=== PATIENT | male | born 1970 | race Caucasian/White ===

== ENCOUNTER → 2024-01-03 06:23 | Day surgery (SDC) | payer BC, SELFPAY ==
[2024-01-03 08:01] LABS: Glucose - Point of Care 139 mg/dl (70-99)
== END ==
LOC: GI 06:23
PROVIDERS: ATTENDING PHYSICIAN Specialist
DX: R10.11 Right upper quadrant pain (principal); K31.89 Other diseases of stomach and duodenum; K31.9 Disease of stomach and duodenum, unspecified
CPT/HCPCS: 43239; 88305; 82962; 88342

== ENCOUNTER 2024-11-30 13:32 | Emergency (ER) | payer BC, SELFPAY ==
[2024-11-30 13:37] VITALS: BP 178/104
--- NOTE | 2024-11-30 13:59 | ED.GENMED ---
History of Present Illness
General
Chief Complaint: Chest Pain
Time Seen by Provider: 11/30/24 13:59
History of Present Illness
History of Present Illness:
TIME OF INITIAL ENCOUNTER: 2:30 PM
HPI: Over the past couple of days, the patient has been having a sensation that he is 'heart does not feel right'. He describes it as a pounding sensation at times feeling that his heart has a forceful beat and then a pause and then a normal soft
beat. He denies any chest pressure. He has some vague lightheadedness as well. He states that he had blood work including thyroid testing 2 days ago without symptoms and testing was normal. He tells me that he was here in the past and received a
bag of IV fluid and then was improved. 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
EXAM:
GENERAL: Well appearing in no distress
HEENT: Moist oral mucosa
CARDIOVASCULAR: No murmurs, normal heart rate, regular rhythm, No chest wall tenderness
PULMONARY: No respiratory distress, breath sounds are clear and equal
ABDOMEN: Soft with no peritoneal signs, no tenderness
NEUROLOGIC: Excellent strength all extremities, no coordination deficits
PSYCHIATRIC: Appropriate mental status, normal insight and judgement
EXTREMITIES: Nontender, no edema, moves all extremities equally
SKIN: No rash, no lesions
NUMBER AND COMPLEXITY OF PROBLEMS ADDRESSED AT THE ENCOUNTER
� Chronic conditions affecting care: IDDM, hypothyroidism
� Acute Exacerbation and/or Progression of Chronic Illness: This is an acute problem
� Differential Diagnosis includes: Electrolyte abnormality, dehydration, medication side effects, viral syndrome
AMOUNT AND/OR COMPLEXITY OF DATA TO BE REVIEWED AND ANALYZED
� I performed an independent evaluation of and my interpretation is:
EKG: Sinus 93, left axis deviation, nonspecific ST abnormality, incomplete right bundle branch block similar to prior, no acute ST abnormality
CT:
X-rays:
Laboratory Studies: CBC unremarkable, slightly low sodium at 130, troponin less than 0.012
Other:
� Review of other/old records: I reviewed records, in July 2023 the patient had a sodium of 125 and today tells me that he felt better after he received fluids at that time
� Clinical information was obtained by an independent historian: None needed
� Prescriptions/Medications Considered but not given:
� Further testing considered but not performed:
RISK OF COMPLICATIONS AND/OR MORBIDITY OR MORTALITY OF PATIENT MANAGEMENT
� Social determinants of health affecting care: Lives at home
� Discussion with other providers:
� Escalation of care including admission/observation vs risk of discharge considered: The patient's sodium is just slightly low at 130 which may or may not have anything to with his symptoms. We did give him a liter of fluid and
he does feel improved. Unclear etiology of all of his symptoms.
ANY OTHER UPDATES:
Past History
Past History
ED Past Medical History: IDDM
ED Past Surgical History: None
Social History
Tobacco: Smoker
Alcohol: None
Drug: None
Phy Exam
Physical Exam
Physical Exam:
See HPI
Scores
Heart Score for Chest Pain Patients
STEMI patient?: Not applicable
Course
Orders/Labs/Results
Orders:
Orders
11/30/24 13:33
EKG with chest pain [ECG as needed] As Directed
ECG as needed for:: Chest Pain
11/30/24 13:45
Complete Blood Count/With Diff Urgent
Comprehensive Metabolic Panel Urgent
TSH Reflex To Free T4 Urgent
Comment: ADD ON
Troponin I Urgent
11/30/24 14:00
Add On- LAB Urgent
Tests Added?: tsh reflex fT4
11/30/24 14:18
Electrocardiogram (*1) Urgent
Reason for Study: Chest Pain
EKG- Treatment ONCE
11/30/24 14:39
0.9% Sodium Chloride 1000 ml [Nss] 1,000 ml IV BOLUS
Abnormal Lab Results
11/30/24
13:45
RBC 4.21 L 10^6/uL
(4.70-6.10)
MCV 97.1 H fL
(80.0-94.0)
MCH 34.0 H pg
(27.0-31.0)
MPV 11.6 H fL
(7.4-10.4)
Abs Immat Gran (auto) 0.1 H 10^3/uL
(0-0.05)
Absolute Neuts (auto) 7.7 H 10^3/uL
(1.4-6.5)
Absolute Lymphs (auto) 0.9 L 10^3/uL
(1.2-3.4)
Immature Gran % 0.7 H %
(0-0.5)
Neutrophils % 83.9 H %
(42.2-75.2)
Lymphocytes % 9.6 L %
(20.5-51.1)
Sodium 130 L mmol/L
(135-145)
11/30/24 13:45
11/30/24 13:45
Vital Signs
Initial and Last Documented VS:
Initial Vital Signs
Temp Pulse Resp BP Pulse Ox
36.7 C 88 18 178/104 100
11/30/24 13:37 11/30/24 13:37 11/30/24 13:37 11/30/24 13:37 11/30/24 13:37
Last Documented Vital Signs
Temp Pulse Resp BP Pulse Ox
36.7 C 88 18 178/104 100
11/30/24 13:37 11/30/24 13:37 11/30/24 13:37 11/30/24 13:37 11/30/24 13:37
*Critical Care Note
Total Time (30-74mins, 75-104mins- exclusive of procedures): Not Applicable
ED Attending Note
-
Portions of this chart may have been created with voice recognition software.� Occasional wrong word or��sound alike� substitutions may have occurred due to the inherent limitations of voice recognition software.
Discharge Plan
Departure
Prescriptions:
No Action
Insulin Pump [Patient's Own Insulin Pump:] 1 UNITS Pump.Resvr
0 ea SC ACHS
cyclobenzaprine 10 MG tablet
10 mg PO BIDPRN PRN (Reason: spasm) Qty: 14 0RF
Referrals:
Maik Quintana MD [Family Provider] -
Interventions
Interventions:
*Risk Screen - Suicide Last Done: 11/30/24 13:37
*General Assessment Last Done: 11/30/24 13:37
*Neglect/Abuse Screening Last Done: 11/30/24 13:37
*ED COVID-19 Vaccine History Last Done: 11/30/24 13:37
ED- Cardiac Assessment Last Done: 11/30/24 14:47
Discharge Date and Time
Print Language: SAMI
[2024-11-30 14:14] VITALS: BMI 23.8
[2024-11-30 14:14] LABS: % Basophils 0.3 % (0-2); % Eosinophils 0.5 % (0-6); % Immature Granulocytes 0.7 % (0-0.5); % Lymphocytes 9.6 % (20.5-51.1); % Neutrophils 83.9 % (42.2-75.2); Absolute Eosinophils 0.1 10^3/uL (0-0.7); Absolute Immature Granulocytes 0.1 10^3/uL (0-0.05); Absolute Lymphocytes 0.9 10^3/uL (1.2-3.4); Absolute Monocytes 0.5 10^3/uL (0.1-0.6); Absolute Neutrophils 7.7 10^3/uL (1.4-6.5); Hematocrit 40.9 % (39.0-52.0); Hemoglobin 14.3 g/dL (13.0-18.0); Mean Corpuscular Volume 97.1 fL (80.0-94.0); Mean Platelet Volume 11.6 fL (7.4-10.4); Nucleated Red Blood Cells % 0 % (-); Platelet Count 184 10^3/uL (130-400); Red Blood Cell Count 4.21 10^6/uL (4.70-6.10); Red Cell Dist. Width 12.4 % (11.5-14.5); White Blood Cell Count 9.1 10^3/uL (4.8-10.8)
[2024-11-30 14:28] LABS: ALT (SGPT) 20 U/L (0-50); AST (SGOT) 26 U/L (17-59); Albumin 4.2 g/dl (3.5-5.0); Alkaline Phosphatase 73 U/L (38-126); Blood Urea Nitrogen 15 mg/dl (9-20); Calcium 9.7 mg/dl (8.4-10.2); Carbon Dioxide 26 mmol/L (22-30); Chloride 98 mmol/L (98-107); Estimated Creatinine Clearance 116 ml/min; Glucose 86 mg/dl (70-99); Potassium 4.6 mmol/L (3.5-5.1); Sodium 130 mmol/L (135-145); Total Bilirubin 0.7 mg/dl (0.2-1.3); Total Protein 7.1 g/dl (6.3-8.2); eGFR > 60.00
[2024-11-30 14:40] LABS: Troponin I < 0.012 ng/ml
[2024-11-30] MEDS: NSS 1000 IV ×2 (14:51→15:51)
[2024-11-30 15:01] VITALS: BP 144/84
[2024-11-30 17:32] LABS: TSH Reflex To Free T4 0.47 uIU/ml (0.47-4.68)
== END 2024-11-30 17:18 | disposition home or self-care (01) ==
LOC: EMR 13:32
PROVIDERS: Emergency Medicine; EMERGENCY PHYSICIAN Emergency Medicine; FAMILY PHYSICIAN Family Medicine
DX: R00.2 Palpitations (principal); F17.200 Nicotine dependence, unspecified, uncomplicated; E11.9 Type 2 diabetes mellitus without complications; E03.9 Hypothyroidism, unspecified
CPT/HCPCS: 99284; 96360; 80053; 84443; 84484; 85025; 93005

== ENCOUNTER 2025-02-10 03:24 | Inpatient (IN) | payer BC, SELFPAY ==
[2025-02-09 17:44] VITALS: BP 179/102
[2025-02-09 18:00] LABS: Hematocrit 39.1 % (39.0-52.0); Hemoglobin 14.1 g/dL (13.0-18.0); Mean Corp Hgb Conc. 36.1 g/dL (33.0-37.0); Mean Corpuscular Volume 94.7 fL (80.0-94.0); Nucleated Red Blood Cells % 0 % (-); Platelet Count 165 10^3/uL (130-400); Red Cell Dist. Width 12.2 % (11.5-14.5)
[2025-02-09 18:14] LABS: ALT (SGPT) 24 U/L (0-50); AST (SGOT) 27 U/L (17-59); Albumin 4.4 g/dl (3.5-5.0); Alkaline Phosphatase 52 U/L (38-126); Blood Urea Nitrogen 14 mg/dl (9-20); Calcium 9.0 mg/dl (8.4-10.2); Carbon Dioxide 23 mmol/L (22-30); Chloride 96 mmol/L (98-107); Glucose 106 mg/dl (70-99); Lipase 19 U/L (23-300); Potassium 4.0 mmol/L (3.5-5.1); Sodium 125 mmol/L (135-145); Total Protein 7.1 g/dl (6.3-8.2); eGFR > 60.00
[2025-02-09 20:55] VITALS: BMI 25.8
[2025-02-09 21:00] VITALS: BP 146/96
--- NOTE | 2025-02-09 21:00 | ED.GENMED ---
History of Present Illness
General
Chief Complaint: Abdominal Pain
Source: patient
Exam Limitations: none
Time Seen by Provider: 02/09/25 20:40
History of Present Illness
History of Present Illness:
54yoM with a history of insulin-dependent diabetes presenting for evaluation of abdominal pain. Patient has been having issues with RUQ pain for the past 3 years. He has been following with GI and had a HIDA scan in August 2023 which was
negative. He has never received a formal diagnosis. His pain has been worsening over the past several days. He describes a pressure in his right upper quadrant which radiates to the R flank. Pain is worse with sitting up and if he lays on the
right side. Pain also worsened after eating a banana earlier today. His only other symptom is nausea but he denies any vomiting. He denies any fevers, chest pain, shortness of breath, diarrhea, constipation, dysuria.
Past History
Past History
ED Past Medical History: IDDM
ED Past Surgical History: None
Social History
Tobacco: Smoker
Alcohol: None
Drug: None
Phy Exam
General Physical Exam
General Presentation: well appearing and no apparent distress
General Skin: warm and dry
General Habitus: normal
General Mental: alert
ENT Exam
ENT Exam: normocephalic
Pulmonary Exam
Pulmonary Exam: no respiratory distress
Gastrointestinal Exam
Gastrointestinal Exam: non tender, soft, non distended and no cva tenderness
Neurological Exam
Neurological Exam: alert
[place] Coma Scale
Eye Opening: Spontaneous
Verbal Response: Oriented
Motor Response: Obeys Commands
GCS Total Score: 15
Skin Exam
Skin Exam: normal color and warm/dry
Psychiatric Exam
Psychiatric Exam: normal mood/affect
Course
Orders/Labs/Results
Orders:
Orders
02/09/25 17:51
Complete Blood Count/With Diff Urgent
Comprehensive Metabolic Panel Urgent
Lipase Urgent
02/09/25 20:57
Ketorolac [Toradol] 15 mg IV NOW STA
Ondansetron Injectable [Zofran] 4 mg IV NOW STA
US Abdomen Complete/Upper Urgent
Comment:
Reason For Exam: RUQ pain
02/09/25 22:31
Osmolality, Random Urine Urgent
Date Specimen was Collected: 02/09/25
Time Specimen was Collected: 21:29
Comment: ADD ON
Urinalysis Reflex To Culture Urgent
Date Specimen was Collected: 02/09/25
Time Specimen was Collected: 21:29
Urine Chloride [S] Urgent
Urine Sodium Urgent
Date Specimen was Collected: 02/09/25
Time Specimen was Collected: 21:29
Comment: ADD ON
02/09/25 23:45
0.9% Sodium Chloride 500 ml [Nss] 500 ml IV BOLUS
02/10/25 00:34
Add On- LAB Urgent
Tests Added?: urine sodium, urine chloride, urine osmolality
02/10/25 02:[address] Non Medication Order As Directed
Physician Order: please TT me when med rec complete
02/10/25 02:02
Admit/Transfer Patient As Directed
Co-Sign Provider:
Level of Care: Inpatient admission
Assign to:: Telemetry
Physician / Group: Shandra Francois
Diagnosis: Hyponatremia
Reason for Telemetry: Chest Pain syndromes
Date to Stop Telemetry: 02/12/25
Time to Stop Telemetry: 11:00
Reason for Hospitalization: Hyponatremia
Expected length of stay greater than two midnights?: Yes
ELOS- Estimated Length of Stay in days: 2
I certify the patient meets the requirements for IP care: Yes
Code Status As Directed
Resuscitation Status: Full Code
PRN Pain Medication Management As Directed
May give lesser potent ordered pain med per pt: Yes
preference::
Protocol:: Medication orders for pain may be administered in a
manner that supports deferring to patient preference
when the pt is:
- Requesting an ordered lesser potent pain medication.
Least to most potent pain medications are defined
as: acetaminophen < NSAID < tramadol < opioids
(morphine, oxycodone, hydromorphone).
- Requesting a lesser dose of the same medication IF
ORDERED.
- Requesting a less intrusive route of administration
if both routes are prescribed by the provider (PO <
IV).
02/12/25 11:00
DC Protocol for Telemetry ONCE
Abnormal Lab Results
02/09/25 02/09/25
17:51 22:31
RBC 4.13 L 10^6/uL
(4.70-6.10)
MCV 94.7 H fL
(80.0-94.0)
MCH 34.1 H pg
(27.0-31.0)
MPV 11.4 H fL
(7.4-10.4)
Abs Immat Gran (auto) 0.1 H 10^3/uL
(0-0.05)
Absolute Lymphs (auto) 1.0 L 10^3/uL
(1.2-3.4)
Immature Gran % 0.6 H %
(0-0.5)
Neutrophils % 79.2 H %
(42.2-75.2)
Lymphocytes % 12.0 L %
(20.5-51.1)
Sodium 125 L mmol/L
(135-145)
Chloride 96 L mmol/L
(98-107)
Glucose 106 H mg/dl
(70-99)
Lipase 19 L U/L
(23-300)
Urine Ketones 3+ A
(Negative)
Urine Osmolality 125 L mOsm/kg
(300-900)
02/09/25 17:51
02/09/25 17:51
Vital Signs
Initial and Last Documented VS:
Initial Vital Signs
Temp Pulse Resp BP Pulse Ox
98.5 F 80 16 179/102 99
02/09/25 17:44 02/09/25 17:44 02/09/25 17:44 02/09/25 17:44 02/09/25 17:44
Last Documented Vital Signs
Temp Pulse Resp BP Pulse Ox
98.5 F 65 15 142/91 98
02/09/25 17:44 02/10/25 01:30 02/10/25 01:30 02/10/25 01:00 02/10/25 01:30
MDM/Problems Addressed
Differential Diagnosis Includes:
54yoM here with acute on chronic RUQ pain. Started 3 years ago, worsening x several days. He is hypertensive otherwise stable vital signs. No reproducible abdominal tenderness on exam. Differential diagnosis includes but is not limited to:
Biliary colic, cholecystitis, pancreatitis, kidney stone, musculoskeletal
Initial ED plan: Lab work obtained in triage. Sodium is 125, down from 130 in November of this year. Remainder of labs unremarkable including normal white count, LFTs, and lipase. Will check right upper quadrant ultrasound and UA.
*Pulse Oximetry
SaO2: 99
Oxygen Mode of Delivery: Room air
Patient hypoxic: no (99%)
*Critical Care Note
Total Time (30-74mins, 75-104mins- exclusive of procedures): Not Applicable
Update Note
Update Note:
Ultrasound is negative for acute findings. No hematuria or signs of infection on UA. D/w Dr. Caro. Given degree of hyponatremia will admit. Patient does report drinking 12 bottles of water today. 3+ ketones on UA so will order 500cc NS bolus.
Urine studies added.
ED Attending Note
-
Portions of this chart may have been created with voice recognition software.� Occasional wrong word or��sound alike� substitutions may have occurred due to the inherent limitations of voice recognition software.
Discharge Plan
Departure
Patient Disposition: Admit
Date of Disposition: 02/10/25
Time of Disposition: 00:35
Presentation/result/management discussed w/ accepting MD/DO: Hospitalist
Discharge Problem:
Hyponatremia, Right upper quadrant abdominal pain
Prescriptions:
No Action
Insulin Pump [Patient's Own Insulin Pump:] 1 UNITS Pump.Resvr
0 ea SC ACHS
cyclobenzaprine 10 MG tablet
10 mg PO BIDPRN PRN (Reason: spasm) Qty: 14 0RF
Referrals:
UNKNOWN - PT DOES,NOT KNOW [Family Provider]
Interventions
Interventions:
*Risk Screen - Suicide Last Done: 02/09/25 17:44
*General Assessment Last Done: 02/09/25 17:44
*Neglect/Abuse Screening Last Done: 02/09/25 21:01
*ED- Fall Risk Assessment Last Done: 02/09/25 21:01
*ED COVID-19 Vaccine History Last Done: 02/09/25 21:01
QY-Oneufu-Owblhjsbli Assessment Last Done: 02/09/25 21:26
Discharge Date and Time
Print Language: YI
[2025-02-09] MEDS: TORADOL 15 MG IV (21:18)
[2025-02-09] MEDS: ZOFRAN 4 MG IV (21:18)
[2025-02-09 22:36] VITALS: BP 146/81
[2025-02-09 22:48] LABS: Urine Character Clear (Clear)
[2025-02-09 23:00] VITALS: BP 139/89
[2025-02-10] VITALS (7 sets, daily range): BP systolic 130–144; BP diastolic 76–91; BMI 24.9
[2025-02-10] MEDS: NSS 500 IV (00:30)
--- NOTE | 2025-02-10 01:23 | HPS.HSE ---
Addendum entered and electronically signed by Shandra Francois MD 02/10/25 02:43:
Alcohol Abuse
-patient reports drinking 5-6 drinks a day
-no signs of withdrawal now
-MSAS with ativan PRN
Original Note:
Family Physician
-
Family Physician: NOT KNOW UNKNOWN - PT DOES
Chief Complaint
-
abdominal pain
History of Present Illness
Mr. Wu Rich is a 54 yo man with hx IDDM presents to the ER with abdominal pain.
Patient reports RUQ pain over past several years with negative HIDA scan in August 2023. He states it's been getting worse and so he came to the ER today. Pain stretches across mid abdomen to back. Sometimes associated with eating and felt worse
after eating a banana earlier today. Pain is also positional.
He reports drinking a lot of water today.
No fevers/chills. No chest pain or shortness of breath. No nausea/vomiting/diarrhea. No LE swelling. No rash.
Medical History
Past Medical History
Past Medical History: Reports IDDM
Past Surgical History: Reports Other
Social History
Tobacco: Former Smoker
Alcohol: Daily (5-6 drinks a day )
Family History
Family History: Not pertinent
Allergies / Home Medications
Allergies reflects when Allergies were last updated in Alerts.
Home Medications with original date entered in Alerts
Allergy/Medication List:
*awaiting med rec
Review of Systems
-
History Source: Patient
A 12 point ROS was completed and negative except as noted: Yes
Physical Exam
Vital Signs
Vital Signs
Temp Pulse Resp BP Pulse Ox
98.5 F 63 13 139/79 98
02/09/25 17:44 02/10/25 00:45 02/10/25 00:45 02/10/25 00:00 02/10/25 00:45
Physical Exam
General: No Apparent Distress
HEENT: PERRLA
Respiratory: Clear; No Wheezes
Cardiac: S1/S2 and Regular Rhythm
GI: Soft, Non Tender and Non Distended
Musculoskeletal: No Edema
Skin: Warm and Dry; No Rash
Neuro: AO x 3
Psych: Calm
Laboratory Results
-
02/09/25 17:51
02/09/25 17:51
Laboratory Results
Total Bilirubin 1.0 mg/dl (0.2-1.3) 02/09/25 17:51
AST 27 U/L (17-59) 02/09/25 17:51
ALT 24 U/L (0-50) 02/09/25 17:51
Alkaline Phosphatase 52 U/L (38-126) 02/09/25 17:51
Lipase 19 U/L (23-300) L 02/09/25 17:51
Data Reviewed
-
Diagnostic Radiology: Report Reviewed by me
Lab Data: Labs Reviewed by me
Impression/Plan
-
Mr. Wu Rich is a 54 yo man with hx IDDM presents to the ER with abdominal pain.
Triage VS: T 98.5, P 80, RR 16, BP 179/102, SpO2 99%
LABS: WBC 8, Hg 14.1, PLT 165, Na 125, K+ 4.0, Cl 96, CO2 23, BUN 14, Cr 0.8, Glucose 106, liver enzymes WNL
urine sodium 30, urine osmol low
RUQ US - no evidence of acute abdominal process to explain patient's abdominal symptoms. No definite change since prior study
Hyponatremia
-low urine osmolality suggest polydypsia
-s/p 500cc in ER
-fluid restriction
-trend sodium
Chronic right upper quadrant abdominal pain
-currently pain resolved
-patient follows with Dr. Skinner as outpatient, has had work up with EGD and HIDA
-neuropathy?
IDDM
-awaiting home med rec
DVT PPx Lovenox subQ
FULL CODE
[2025-02-10 04:02] LABS: Magnesium 1.6 mg/dl (1.6-2.3)
--- NOTE | 2025-02-10 05:14 | PTCARENOTE ---
Patient arrived from the ED via stretcher. Patient ambulated into the room. No c/o pain. No c/o N/V. AAOx3, VSS. MSAS 0. Patient educated on medication regimen, diet, and fluid restriction. Patient has own insulin pump and Dexcom on left upper arm.
Call [facility]win is within reach.
[2025-02-10] MEDS: SYNTHROID 125 MCG PO (06:00)
[2025-02-10 08:47] LABS: Glucose - Point of Care 73 mg/dl (70-99)
[2025-02-10 08:48] LABS: Hematocrit 40.7 % (39.0-52.0); Hemoglobin 14.8 g/dL (13.0-18.0); Mean Corp Hgb Conc. 36.4 g/dL (33.0-37.0); Mean Corpuscular Volume 94.0 fL (80.0-94.0); Platelet Count 161 10^3/uL (130-400); Red Cell Dist. Width 12.1 % (11.5-14.5)
[2025-02-10 09:16] LABS: Blood Urea Nitrogen 11 mg/dl (9-20); Calcium 9.1 mg/dl (8.4-10.2); Carbon Dioxide 27 mmol/L (22-30); Chloride 106 mmol/L (98-107); Estimated Creatinine Clearance 115 ml/min; Glucose 87 mg/dl (70-99); Magnesium 2.2 mg/dl (1.6-2.3); Potassium 4.4 mmol/L (3.5-5.1); Sodium 135 mmol/L (135-145); eGFR > 60.00
[2025-02-10] MEDS: FOLVITE 1 MG PO (09:21)
[2025-02-10] MEDS: THIAMINE INJECTION 200 MG IV (09:22)
[2025-02-10] MEDS: PROTONIX 40 MG PO (09:22)
--- NOTE | 2025-02-10 10:28 | W.PN.HOSP.TC ---
Addendum entered and electronically signed by Juan Yang MD 02/10/25 11:58:
Unexpected rapid recovery.
Original Note:
Today's Communication/Plan
-
d/c
Assessment / Plan
Assessment / Plan
Gen: NAD, AAOx3.
Eyes: EOMI, PERRLA, no scleral icterus.
Neck: supple.
CV: RRR, +S1/S2, no m/r/g.
Resp: CTAB, no rales, wheezes, or rhonchi.
Abd: +BS, soft, NT, ND
Skin: No rashes.
Neuro: CN 2-12 intact, non-focal.
Psych: Normal mood and affect.
RUQ U/S: no evidence of acute abdominal process to explain patient's abdominal symptoms. No definite change since prior study.
Hyponatremia
-low urine osmolality suggests polydypsia as etiology
-s/p 500cc in ER
-cont FR
-Na now 135, resolved
Chronic right upper quadrant abdominal pain
-currently pain resolved
-patient follows with Dr. Skinner as outpatient, has had work up with EGD and HIDA
-? neuropathic
DM2:
-cont insulin pump
Alcohol Abuse
-patient reports drinking 5-6 drinks a day
-no signs of withdrawal currently
-MSAS with ativan PRN
FULL/Lovenox
Total time spent on d/c = 31 min. This included today's physical exam, progress note, review of laboratory and diagnostic data, preparation of discharge documents and prescriptions, and discussions about the pt's hospital course and discharge plan
with the patient and other medical office assistant involved in the patient's care.
Anticipated Discharge: Today
Subjective/Interval History
-
Date of Service: February 10, 2025
No new complaints.
Objective Data
-
Labs:
Laboratory Results
02/10/25 02/10/25 02/10/25
04:36 08:37 10:15
WBC 5.6
Hgb 14.8
Hct 40.7
Plt Count 161
Sodium Cancelled 135 D Pending
Potassium 4.4
Chloride 106
Carbon Dioxide 27
BUN 11
Creatinine 0.8
Glucose 87
Calcium 9.1
02/10/25
16:36
WBC
Hgb
Hct
Plt Count
Sodium Pending
Potassium
Chloride
Carbon Dioxide
BUN
Creatinine
Glucose
Calcium
Vital Signs:
Vital Signs
Temp Pulse Resp BP Pulse Ox
98.0 F 66 14 133/82 98
02/10/25 07:55 02/10/25 07:55 02/10/25 07:55 02/10/25 07:55 02/10/25 07:55
[2025-02-10 10:42] LABS: Sodium 132 mmol/L (135-145)
--- NOTE | 2025-02-10 12:50 | CM ---
Alert awake oriented patient who lives alone lives in a 1 story home with 2 step to enter. He is independent in driving and in all activities of daily living.He was offered VN he declined need.He said he will drive himself home.
No VN hx / No SNF history
Pharmacy [facility]
PCP DAWIT Stacy
PLAN Home Declined VN
[2025-02-10 12:58] LABS: Glucose - Point of Care 126 mg/dl (70-99)
[2025-02-11 21:35] LABS: 24 Hour Urine Total Volume Random mL; Chloride, Urine 20 mmol/L; Creatinine, Urine per Volume 15 mg/dL; Urine Collection Length Random hr
== END 2025-02-10 14:00 | disposition home or self-care (01) | DRG 641 ==
LOC: 4 EAST ACU 03:24
PROVIDERS: Physician Assistant; Student in an Organized Health Care Education/Training Program; ADMITTING PHYSICIAN Student in an Organized Health Care Education/Training Program; ATTENDING PHYSICIAN Internal Medicine; EMERGENCY PHYSICIAN Emergency Medicine
DX: E87.1 Hypo-osmolality and hyponatremia (principal); R10.11 Right upper quadrant pain; R11.0 Nausea; E11.40 Type 2 diabetes mellitus with diabetic neuropathy, unspecified; G89.29 Other chronic pain; F10.10 Alcohol abuse, uncomplicated; Z96.41 Presence of insulin pump (external) (internal); Z79.4 Long term (current) use of insulin; Z87.891 Personal history of nicotine dependence
CPT/HCPCS: 76700; 80048; 80053; 81003; 82436; 82962; 83690; 83735; 83935; 84100; 84295; 84300; 85025; 85027; 96361; 96374; 96375; 99284

== ENCOUNTER → 2025-07-05 14:34 | Outpatient (REF) | payer BC, SELFPAY | LOC: RAD 14:34 | PROVIDERS: ATTENDING PHYSICIAN Nurse Practitioner Family; FAMILY PHYSICIAN Family Medicine | DX: R10.A1 Flank pain, right side (principal) | CPT/HCPCS: 74018 ==